=== PATIENT | female | born 1955 | race African-American/Black ===

== ENCOUNTER 2019-06-10 00:11 | Observation (INO) ==
[2019-06-10 00:50] LABS: Basophils # (auto) 0.04 K/uL (0-0.2); Basophils % (auto) 0.3 %; Eosinophils # (auto) 0.19 K/uL (0-0.5); Eosinophils % (auto) 1.5 %; Hematocrit (blood only) 36.3 % (37-47); Hemoglobin 12.8 g/dL (12.0-16.0); Immature Granulocytes # (auto) 0.03 K/uL (0.00-0.02); Immature Granulocytes % (auto) 0.2 %; Lymphocytes # (auto) 4.21 K/uL (1.2-3.4); Lymphocytes % (auto) 32.4 %; Mean Corpuscular Hemoglobin 35.4 pg (25-34); Mean Corpuscular Hgb Conc 35.3 g/dL (32-36); Mean Corpuscular Volume 100.3 fL (80-100); Mean Platelet Volume 9.7 fL (7.4-10.4); Monocytes # (auto) 1.03 K/uL (0.11-0.59); Monocytes % (auto) 7.9 %; Neutrophils % (auto) 57.7 %; Platelet Count 199 K/uL (130-400); RDW Coefficient of Variation 14.4 % (11.5-14.5); RDW Standard Deviation 52.7 fL (36.4-46.3); Red Blood Count 3.62 M/uL (4.2-5.4)
--- NOTE | 2019-06-10 00:59 | Emergency Department Note ---
History of Present Illness General Chief complaint: Tachycardia Stated complaint: FAST PULSE Time Seen by Provider: 06/10/19 00:28 History of Present Illness This is a 63-year-old female that presents to the emergency department via private vehicle with complaints of "fast pulse". The patient states that carlo cotaight around 10 PM she was laying in bed and felt a throbbing sensation in her head/jainism region and then checked her heart rate and it was quite high. Her pressure was not that high as she thought it could be from hypertension. Her heart rate was between 107 and 122. There was no chest pain or shortness of breath with this but she has been having some pain in the left anterior chest/region just inferior to the left breast. It is not with exertion. No known trauma or injury. She has a history of hypertension, hypercholesterolemia among others. No history of A. fib. No history of PE. No history of SC. Home Medications Home Medications Medication Instructions Recorded Confirmed Type multivitamin 1 tab PO DAILY 11/24/18 06/10/19 History chlorpheniramine maleate 4 mg 4 mg PO Q12H #120 tab 03/07/19 06/10/19 Rx tablet diclofenac sodium 50 mg 50 mg PO BID #60 tab 03/24/19 06/10/19 Rx tablet,delayed release famotidine 20 mg tablet 20 mg PO DAILY #90 tab 03/24/19 06/10/19 Rx amlodipine 5 mg tablet 5 mg PO DAILY #90 tab 04/24/19 06/10/19 Rx hydrochlorothiazide 25 mg tablet 25 mg PO DAILY #90 tab 04/24/19 06/10/19 Rx montelukast 10 mg tablet 10 mg PO QPM #90 tab 04/24/19 06/10/19 Rx acetaminophen 325 mg capsule 325 mg PO DAILY cap 04/27/19 06/10/19 History cetirizine 10 mg tablet 10 mg PO DAILY 04/27/19 06/10/19 History cholecalciferol (vitamin D3) 125 5,000 units PO WEEKLY cap 04/27/19 06/10/19 History mcg (5,000 unit) capsule darunavir 800 mg-cobicistat 150 mg 1 tab PO DAILY #30 tab 04/27/19 06/10/19 Rx tablet emtricitabine 200 mg-tenofovir 1 tab PO DAILY #30 tab 04/27/19 06/10/19 Rx alafenamide fumarate 25 mg tablet umeclidinium 62.5 mcg-vilanterol 1 puffs INH DAILY #60 ea 04/27/19 06/10/19 Rx 25 mcg/actuation powdr for inhalation azelastine 137 mcg (0.1 %) nasal 1 sprays INTNAS Q12H #30 ml 05/01/19 06/10/19 Rx spray aerosol omega-3 fatty acids 1,000 mg 1,000 mg PO DAILY #90 cap 05/01/19 06/10/19 Rx capsule compr.stocking,knee,long,large #12 ea 05/24/19 06/06/19 Rx albuterol sulfate 2 puff INHALATION QID PRN 06/10/19 06/10/19 History baclofen 10 mg PO DAILY 06/10/19 06/10/19 History Allergies Allergy/AdvReac Type Severity Reaction Status Date / Time enalapril AdvReac cough Verified 06/10/19 03:30 Past Med/Surg History Medical History Acid reflux disease (Chronic) Allergies (Chronic) COPD (chronic obstructive pulmonary disease) (Chronic) Hepatitis HIV (human immunodeficiency virus infection) (Chronic) HTN (hypertension) (Chronic) Hyperlipidemia (Chronic) Lumbar disc disease (Chronic) Vitamin D insufficiency Surgical History No pertinent past surgical history Family History Mother Heart disease Mother Hypertension Other Myocardial infarction Denies family history of Ovarian cancer Prostate cancer Breast cancer Lung cancer Colorectal cancer Stroke Social History Preferred Language: Wolof Communication Ability: Effective Visual Impairment: No Limitations Hearing Ability: Normal Duplicator Punch Operator Required: No Beliefs That Will Affect Care: None marital status: / Current Living Situation: Family Current Living Situation Comment: grandson current occupational status: retired Feels Safe at Home: Yes Smoking Status: Unknown if ever smoked Hx Alcohol Use: No Hx Substance Use: No Childhood Exposure to Second-Hand Smoke: Yes caffeine: No Dental Care, Regularly: Yes Physical Activity Frequency: Other Physical Activity Frequency Comment: limited Seatbelt Use: always Sunscreen Use: No Review of Systems A total of 10 systems reviewed and were otherwise negative Physical Exam Vital Signs Vital Signs - 24 hr 06/10/19 00:12 06/10/19 00:17 06/10/19 02:30 Temperature 36.8 C Temperature Source Oral Pulse Rate 116 H Pulse Rate [Apical] Respiratory Rate 18 18 Respiratory Effort / Characteristics Non-Labored Non-Labored Non-Labored Respiratory Depth Normal Normal Normal Respiratory Pattern Regular Regular Blood Pressure 138/77 Blood Pressure [Right Arm] 119/76 Blood Pressure Mean 97 Blood Pressure Mean [Right Arm] 90 Blood Pressure Position [Right Arm] Lying Pulse Oximetry 94 95 Oxygen Delivery Method Room Air Room Air Room Air Sepsis Recent Fever Within 48 Hours No Sepsis Action Taken by Nursing No Action Required 06/10/19 04:39 Temperature Temperature Source Pulse Rate Pulse Rate [Apical] 90 Respiratory Rate 18 Respiratory Effort / Characteristics Non-Labored Respiratory Depth Normal Respiratory Pattern Blood Pressure Blood Pressure [Right Arm] 111/68 Blood Pressure Mean Blood Pressure Mean [Right Arm] 82 Blood Pressure Position [Right Arm] Pulse Oximetry 97 Oxygen Delivery Method Room Air Sepsis Recent Fever Within 48 Hours Sepsis Action Taken by Nursing VITAL SIGNS - Vital signs and nursing notes were reviewed. Tachycardic and afebrile. GENERAL - 63-year-old female appearing her stated age who is in no acute distress. Communicates well with provider and answers questions appropriately. SKIN - Without rashes. HEAD - NC/AT. EYES - PERRL with EOMI bilaterally. Sclera anicteric. EARS - No deformities of external structures noted on gross examination bilaterally. Fluid behind TM bilaterally, nonerythematous. No perforation. NOSE - Midline and without cyanosis. No epistaxis or purulent drainage noted. MOUTH/OROPHARYNX - Without perioral cyanosis. Buccal mucosa pink and moist and without leukoplakia. NECK - Neck with FROM. No nuchal rigidity. LUNGS - Chest wall symmetric without accessory muscle use, intercostals retractions, or central cyanosis. Normal vesicular breath sounds CTA B/L. No wheezes, rales, or rhonchi appreciated. CARDIAC - RRR with S1/S2. No murmur, rubs, or gallops appreciated. EXTREMITIES - No clubbing or peripheral cyanosis. No pretibial edema present. +5/5 strength noted in UE/LE bilaterally. NEUROLOGIC - Cranial nerves II through XII grossly intact. Patellar reflexes +2/ 4. PSYCH - A&O, and cooperates fully with examiner. Pt is very pleasant and interacts well with examiner. Course Administered Medications Acetaminophen (Tylenol) 325 mg PO DAILY JONE Stop: 07/10/19 08:59 Last Admin: 06/10/19 08:51 Dose: 325 mg Documented by: [id number] Amlodipine Besylate (Norvasc) 5 mg PO DAILY JONE Stop: 07/10/19 08:59 Last Admin: 06/10/19 08:50 Dose: 5 mg Documented by: [id number] Baclofen (Lioresal) 10 mg PO DAILY JONE Stop: 07/10/19 08:59 Last Admin: 06/10/19 08:48 Dose: 10 mg Documented by: [id number] Cetirizine HCl (Zyrtec) 10 mg PO DAILY JONE Stop: 07/10/19 08:59 Last Admin: 06/10/19 08:51 Dose: 10 mg Documented by: [id number] Diclofenac Sodium (Voltaren) 50 mg PO BID JONE Stop: 07/10/19 08:59 Last Admin: 06/10/19 08:50 Dose: 50 mg Documented by: [id number] Famotidine (Pepcid) 20 mg PO DAILY JONE Stop: 07/10/19 08:59 Last Admin: 06/10/19 08:49 Dose: 20 mg Documented by: [id number] Fish Oil (Dewey-3 (Purified Fish Oil)) 1 gm PO DAILY JONE Stop: 07/10/19 08:59 Last Admin: 06/10/19 08:49 Dose: 1 gm Documented by: [id number] Potassium Chloride/Sodium Chloride (Normal Saline W/20 Meq Kcl) 20 meq in 1,000 mls @ 150 mls/hr IV .Q6H40M JONE Stop: 07/10/19 04:44 Last Admin: 06/10/19 05:31 Dose: 150 mls/hr Documented by: [id number] Miscellaneous (Order Awaiting Action) 1 ea N/A QS JONE Stop: 07/10/19 07:59 Last Admin: 06/10/19 08:53 Dose: Not Given Documented by: [id number] Miscellaneous (Order Awaiting Action) 1 ea N/A QS JONE Stop: 07/10/19 07:59 Last Admin: 06/10/19 08:53 Dose: Not Given Documented by: [id number] Miscellaneous (Order Awaiting Action) 1 ea N/A QS JONE Stop: 07/10/19 07:59 Last Admin: 06/10/19 08:52 Dose: Not Given Documented by: [id number] Miscellaneous (Order Awaiting Action) 1 ea N/A QS JONE Stop: 07/10/19 07:59 Last Admin: 06/10/19 08:53 Dose: Not Given Documented by: [id number] Multivitamins (Multivitamin Tab) 1 tab PO DAILY JONE Stop: 07/10/19 08:59 Last Admin: 06/10/19 08:51 Dose: 1 tab Documented by: [id number] Umeclidinium/Vilanterol (Anoro Ellipta 62.5/25 Mcg Inh) 1 puffs INH DAILY JONE Stop: 07/10/19 08:59 Last Admin: 06/10/19 08:52 Dose: 1 puffs Documented by: [id number] Discontinued Medications Potassium Chloride (K Mark / Wtr) 10 meq in 100 mls @ 100 mls/hr IV ONE ONE Stop: 06/10/19 02:39 Last Infusion: 06/10/19 03:09 Dose: 0 mls/hr Documented by: [id number] Admin: 06/10/19 01:50 Dose: 100 mls/hr Documented by: [id number] Potassium Chloride (K Mark / Wtr) 10 meq in 100 mls @ 100 mls/hr IV Q1H JONE Stop: 06/10/19 04:59 Last Infusion: 06/10/19 05:09 Dose: 0 mls/hr Documented by: [id number] Admin: 06/10/19 04:06 Dose: 100 mls/hr Documented by: [id number] Infusion: 06/10/19 04:05 Dose: 0 mls/hr Documented by: [id number] Admin: 06/10/19 03:09 Dose: 100 mls/hr Documented by: [id number] Potassium Chloride (Klor-Con M20) 40 meq PO NOW STA Stop: 06/10/19 05:05 Last Admin: 06/10/19 05:38 Dose: 40 meq Documented by: [id number] Potassium Chloride (Klor-Con M20) 40 meq PO NOW STA Stop: 06/10/19 07:56 Last Admin: 06/10/19 08:48 Dose: 40 meq Documented by: [id number] Medical Decision Making Laboratory Data Result diagrams: 06/10/19 00:35 06/10/19 00:35 Lab Results 06/10/19 06/10/19 06/10/19 Range/Units 00:35 00:35 00:35 WBC 13.00 H (4.8-10.8) K/uL RBC 3.62 L (4.2-5.4) M/uL Hgb 12.8 (12.0-16.0) g/dL Hct 36.3 L (37-47) % MCV 100.3 H (80-100) fL MCH 35.4 H (25-34) pg MCHC 35.3 (32-36) g/dL RDW Std Deviation 52.7 H (36.4-46.3) fL RDW Coeff of Tim 14.4 (11.5-14.5) % Plt Count 199 (130-400) K/uL MPV 9.7 (7.4-10.4) fL Immature Gran % (Auto) 0.2 % Neut % (Auto) 57.7 % Lymph % (Auto) 32.4 % Henderson % (Auto) 7.9 % Eos % (Auto) 1.5 % Baso % (Auto) 0.3 % Immature Gran # (Auto) 0.03 H (0.00-0.02) K/uL Neut # (Auto) 7.50 H (1.4-6.5) K/uL Lymph # (Auto) 4.21 H (1.2-3.4) K/uL Henderson # (Auto) 1.03 H (0.11-0.59) K/uL Eos # (Auto) 0.19 (0-0.5) K/uL Baso # (Auto) 0.04 (0-0.2) K/uL PT 10.6 (9.0-12.0) Seconds INR 1.0 (0.9-1.1) APTT 22.7 (21.0-31.0) Seconds PTT Ratio 0.8 D-Dimer 480 (0-500) ug/L FEU Sodium 140 (136-145) mmol/L Potassium 2.7 L (3.5-5.1) mmol/L Chloride 106 (98-107) mmol/L Carbon Dioxide 27 (21-32) mmol/L Anion Gap 7.0 (3-11) BUN 14 (7-18) mg/dl Creatinine 1.20 (0.6-1.2) mg/dl Est Cr Clr Drug Dosing 56.9 ml/min Est GFR ( Amer) 55.7 Est GFR (Non-Af Amer) 48.1 BUN/Creatinine Ratio 11.9 (10-20) Glucose 166 H (70-99) mg/dl Calcium 9.6 (8.5-10.1) mg/dl Magnesium 2.0 (1.8-2.4) mg/dl Total Bilirubin 0.5 (0.2-1) mg/dl AST 24 (15-37) U/L ALT 35 (12-78) U/L Alkaline Phosphatase 73 (45-117) U/L Troponin I < 0.015 (0-0.045) ng/ml Total Protein 7.9 (6.4-8.2) gm/dl Albumin 3.5 (3.4-5.0) gm/dl Globulin 4.4 H (2.5-4.0) gm/dl Albumin/Globulin Ratio 0.8 L (0.9-2) Lipase 174 (73-393) U/L TSH 0.888 (0.300-4.500) uIu/ml Urine Color Urine Appearance (Clear) Urine pH (4.5-7.5) Ur Specific [place] (1.000-1.030) Urine Protein (Negative) Urine Glucose (UA) (Negative) Urine Ketones (Negative) Urine Blood (Negative) Urine Nitrite (Negative) Urine Bilirubin (Negative) Urine Urobilinogen (Negative) Ur Leukocyte Esterase (Negative) 06/10/19 Range/Units 02:50 WBC (4.8-10.8) K/uL RBC (4.2-5.4) M/uL Hgb (12.0-16.0) g/dL Hct (37-47) % MCV (80-100) fL MCH (25-34) pg MCHC (32-36) g/dL RDW Std Deviation (36.4-46.3) fL RDW Coeff of Tim (11.5-14.5) % Plt Count (130-400) K/uL MPV (7.4-10.4) fL Immature Gran % (Auto) % Neut % (Auto) % Lymph % (Auto) % Henderson % (Auto) % Eos % (Auto) % Baso % (Auto) % Immature Gran # (Auto) (0.00-0.02) K/uL Neut # (Auto) (1.4-6.5) K/uL Lymph # (Auto) (1.2-3.4) K/uL Henderson # (Auto) (0.11-0.59) K/uL Eos # (Auto) (0-0.5) K/uL Baso # (Auto) (0-0.2) K/uL PT (9.0-12.0) Seconds INR (0.9-1.1) APTT (21.0-31.0) Seconds PTT Ratio D-Dimer (0-500) ug/L FEU Sodium (136-145) mmol/L Potassium (3.5-5.1) mmol/L Chloride (98-107) mmol/L Carbon Dioxide (21-32) mmol/L Anion Gap (3-11) BUN (7-18) mg/dl Creatinine (0.6-1.2) mg/dl Est Cr Clr Drug Dosing ml/min Est GFR ( Amer) Est GFR (Non-Af Amer) BUN/Creatinine Ratio (10-20) Glucose (70-99) mg/dl Calcium (8.5-10.1) mg/dl Magnesium (1.8-2.4) mg/dl Total Bilirubin (0.2-1) mg/dl AST (15-37) U/L ALT (12-78) U/L Alkaline Phosphatase (45-117) U/L Troponin I (0-0.045) ng/ml Total Protein (6.4-8.2) gm/dl Albumin (3.4-5.0) gm/dl Globulin (2.5-4.0) gm/dl Albumin/Globulin Ratio (0.9-2) Lipase (73-393) U/L TSH (0.300-4.500) uIu/ml Urine Color Yellow Urine Appearance Clear (Clear) Urine pH 7.0 (4.5-7.5) Ur Specific [place] 1.014 (1.000-1.030) Urine Protein Negative (Negative) Urine Glucose (UA) Negative (Negative) Urine Ketones Negative (Negative) Urine Blood Negative (Negative) Urine Nitrite Negative (Negative) Urine Bilirubin Negative (Negative) Urine Urobilinogen Negative (Negative) Ur Leukocyte Esterase Negative (Negative) Imaging Data My Impression: Negative chest x-ray. MDM Narrative Patient was seen and evaluated as above C6. Review was performed of nursing notes and vital signs. After obtaining a thorough history and physical examina tion the above work up was performed. She presents to us today with complaints of tachycardia. This is never been a trouble before. She is nontoxic on exam. Vital signs otherwise are stable. No recent illness. No chest pain currently but she notes that her last episode of pain underneath the left breast was yesterday. Patient does have a history of hypertension, hypercholesterolemia. Chest x-ray was obtained and results as above. Chest x-ray negative per my interpretation. An EKG was also obtained per my interpretation reveals sinus tachycardia rate of 109 bpm. QTc 659. Heart score 3-4. Mild leukocytosis at 13.0. Hemoglobin normal. D-dimer normal. Potassium 2.7. She was ordered 20 M EQ's of IV potassium IV. Urine is negative. Given the patient's age, presentation, risk factors, left anterior/inferior chest pain in the setting of tachycardia it is felt that further evaluation and management in the inpatient setting is warranted. Although certainly much of this could be caused by hypokalemia secondary to her underlying blood pressure medication given the risk factors it is felt that she be better served in the inpatient setting. Patient was in agreement. Please refer to further documentation regarding her stay. Case was discussed with the attending physician. GCS: 15 In the evaluation and treatment of this patient, the following differential diagnoses were considered: SC, ASC, Dysrhythmia, Angina, Mediastinitis, GERD, Esophagitis, PE, Pneumonia, Bronchitis, Costochondritis, Rib Fracture, Zoster. Impression & Plan Chest pain of uncertain etiology, Hypokalemia, Tachycardia Discharge Plan Visit Data *Final* Discharge Date/Time: 06/10/19 05:10 Chief Complaint: Tachycardia Stated Complaint: FAST PULSE ED Provider: Sera Hopkins ED Midlevel Provider: Awais Salazar Discharge Problem: Chest pain of uncertain etiology, Hypokalemia, Tachycardia Patient Disposition: Admitted As Inpatient Discharge Instructions Interventions: ED Discharge Assessment Last Done: 06/10/19 05:10
[2019-06-10 01:10] LABS: Alanine Aminotransferase 35 U/L (12-78); Albumin Level 3.5 gm/dl (3.4-5.0); Aspartate Aminotransferase 24 U/L (15-37); BUN Creatinine Ratio 11.9 (10-20); Blood Urea Nitrogen 14 mg/dl (7-18); Calcium 9.6 mg/dl (8.5-10.1); Carbon Dioxide 27 mmol/L (21-32); Chloride 106 mmol/L (98-107); Creatinine Clr Calc Pharmacy 56.9 ml/min; Est GFR (African American) 55.7; Est GFR (Non-African American) 48.1; Glucose 166 mg/dl (70-99); Lipase 174 U/L (73-393); Potassium 2.7 mmol/L (3.5-5.1); Sodium 140 mmol/L (136-145)
[2019-06-10 01:17] LABS: D Dimer 480 ug/L FEU (0-500); Partial Thromboplastin Ratio 0.8; Partial Thromboplastin Time 22.7 Seconds (21.0-31.0); Prothrombin Time 10.6 Seconds (9.0-12.0)
[2019-06-10 01:21] LABS: Albumin Globulin Ratio 0.8 (0.9-2); Alkaline Phosphatase 73 U/L (45-117); Bilirubin,Total 0.5 mg/dl (0.2-1); Globulin 4.4 gm/dl (2.5-4.0); Thyroid Stimulating Hormone 0.888 uIu/ml (0.300-4.500); Total Protein 7.9 gm/dl (6.4-8.2); Troponin I < 0.015 ng/ml (0-0.045)
[2019-06-10] MEDS ORDERED: POTASSIUM CHLORIDE / WTR 10 MEQ/100 ML PLCT IV ONE (01:40)
[2019-06-10 03:05] LABS: Appearance Urine Clear (Clear); Bilirubin Urine Negative (Negative); Blood Urine Negative (Negative); Color Urine Yellow; Glucose Urine UA Negative (Negative); Ketones Urine Negative (Negative); Leukocyte Esterase Urine Negative (Negative); Nitrite Urine Negative (Negative); Protein Urine Negative (Negative); Specific Gravity Urine 1.014 (1.000-1.030); Urobilinogen Urine Negative (Negative)
[2019-06-10] MEDS: POTASSIUM CHLORIDE / WTR 10 MEQ/100 ML PLCT IV SCH ×2 (03:09→04:06)
[2019-06-10] MEDS ORDERED: MAGNESIUM HYDROXIDE SUSP 30 ML UDC PO PRN (04:35)
[2019-06-10] MEDS ORDERED: NITROGLYCERIN SL 0.4 MG/TAB TAB SL PRN (04:35)
[2019-06-10] MEDS ORDERED: ACETAMINOPHEN 325 MG TAB PO PRN (04:35)
[2019-06-10] MEDS ORDERED: ONDANSETRON INJ 2 MG/ML 2 ML VIAL IV PRN (04:35)
[2019-06-10] MEDS ORDERED: ALUMINUM/MAGNESIUM SUSP 30 ML UDC PO PRN (04:35)
[2019-06-10] MEDS ORDERED: ALBUTEROL HFA 8 GM INHALER INH PRN (04:43)
[2019-06-10] MEDS ORDERED: NSS + 20MEQ KCL 20 MEQ/1,000 ML BAG IV SCH (04:45)
[2019-06-10] MEDS ORDERED: POTASSIUM CHLORIDE 20 MEQ TABCR PO STA ×2 (05:04→07:55)
--- NOTE | 2019-06-10 05:29 | History & Physical Report ---
Date of Service June 10, 2019 Assessment & Plan (1) Chest pain of uncertain etiology: Chest pain under her left breast- The patient will be admitted to telemetry for serial cardiac enzymes, serial EKG's, cardiac rhythm monitoring and a 2-D echocardiogram with Dopplers. The pain has been intermittent, sharp, and often times associated with the sensation of a rapid heartbeat. Sinus tachycardia noted on monitor, likely secondary to hypokalemia induced by HCTZ. If patient is to resume HCTZ after discharge, would suggest that she break the tablets in half, and be given a prescription for oral potassium supplementation. Present on Admission?: Yes (2) Hypokalemia due to excessive renal loss of potassium: Hold HCTZ. Replace potassium both orally and IV, and repeat BMP at 11:00 AM today Present on Admission?: Yes (3) HTN (hypertension): Continue amlodipine 5 mg p.o. daily. Hold HCTZ 12 5 mg p.o. daily, due to being the cause of low potassium of 2.7 Present on Admission?: Yes (4) HIV (human immunodeficiency virus infection): Continue usual medication emtricitabine 200mg-tenofovir fumarate 25mg tablet daily, and darunavir 800mg-cobicistat 150mg tablet daily. Present on Admission?: Yes (5) COPD (chronic obstructive pulmonary disease): Continue albuterol sulfate 2 puffs 4 times daily as needed, and Umeclidinium Vilanterol 1 puff inhaled daily. Continue montelukast Present on Admission?: Yes (6) Acid reflux disease: Continue famotidine Present on Admission?: Yes (7) Hyperlipidemia: On no direct treatment at this time Present on Admission?: Yes (8) Allergies: Continue cetirizine 10 mg p.o. daily, chlorpheniramine as needed, and azelastine nasal spray every 12 hours Present on Admission?: Yes (9) Lumbar disc disease: Continue baclofen, diclofenac sodium and acetaminophen as needed. Present on Admission?: Yes History of Present Illness Chief Complaint: The patient presents to the emergency department with worsening increased heart rate, tingling in her fingers and toes, fatigue and intermittent pain under her left breast. Primary Care Provider: Gaetano Blackburn MD The patient is a 63-year-old female with a past medical history including spinal stenosis, spondylolisthesis at L5-S1 level, lower leg edema, vitamin D deficiency, hypertension, HIV infection, lumbar disc disease, COPD, GERD, allergies and hyperlipidemia. She presents to the emergency department with the above symptoms, which began a few days ago, but intensified prior to arrival to the ED. Allergies Allergy/AdvReac Type Severity Reaction Status Date / Time enalapril AdvReac cough Verified 06/10/19 03:30 Home Medications Home Medications Medication Instructions Recorded Confirmed Type multivitamin 1 tab PO DAILY 11/24/18 06/10/19 History chlorpheniramine maleate 4 mg 4 mg PO Q12H #120 tab 03/07/19 06/10/19 Rx tablet diclofenac sodium 50 mg 50 mg PO BID #60 tab 03/24/19 06/10/19 Rx tablet,delayed release famotidine 20 mg tablet 20 mg PO DAILY #90 tab 03/24/19 06/10/19 Rx amlodipine 5 mg tablet 5 mg PO DAILY #90 tab 04/24/19 06/10/19 Rx hydrochlorothiazide 25 mg tablet 25 mg PO DAILY #90 tab 04/24/19 06/10/19 Rx montelukast 10 mg tablet 10 mg PO QPM #90 tab 04/24/19 06/10/19 Rx acetaminophen 325 mg capsule 325 mg PO DAILY cap 04/27/19 06/10/19 History cetirizine 10 mg tablet 10 mg PO DAILY 04/27/19 06/10/19 History cholecalciferol (vitamin D3) 125 5,000 units PO WEEKLY cap 04/27/19 06/10/19 History mcg (5,000 unit) capsule darunavir 800 mg-cobicistat 150 mg 1 tab PO DAILY #30 tab 04/27/19 06/10/19 Rx tablet emtricitabine 200 mg-tenofovir 1 tab PO DAILY #30 tab 04/27/19 06/10/19 Rx alafenamide fumarate 25 mg tablet umeclidinium 62.5 mcg-vilanterol 1 puffs INH DAILY #60 ea 04/27/19 06/10/19 Rx 25 mcg/actuation powdr for inhalation azelastine 137 mcg (0.1 %) nasal 1 sprays INTNAS Q12H #30 ml 05/01/19 06/10/19 Rx spray aerosol omega-3 fatty acids 1,000 mg 1,000 mg PO DAILY #90 cap 05/01/19 06/10/19 Rx capsule compr.stocking,knee,long,large #12 ea 05/24/19 06/06/19 Rx albuterol sulfate 2 puff INHALATION QID PRN 06/10/19 06/10/19 History baclofen 10 mg PO DAILY 06/10/19 06/10/19 History Past Med/Surg History Social History Preferred Language: Croatian Communication Ability: Effective Visual Impairment: No Limitations Hearing Ability: Normal Beliefs That Will Affect Care: None marital status: / Current Living Situation: Family Current Living Situation Comment: grandson current occupational status: retired Feels Safe at Home: Yes Smoking Status: Never smoker Tobacco Type: cigarettes ; Age Started Using Tobacco: 14 ; Age Quit Using Tobacco: 62 ; packs per day: 1 ; Second Hand Exposure: Yes ; Hx Alcohol Use: No Hx Substance Use: No Childhood Exposure to Second-Hand Smoke: Yes caffeine: No Dental Care, Regularly: Yes Physical Activity Frequency: Other Physical Activity Frequency Comment: limited Seatbelt Use: always Sunscreen Use: No Review of Systems Review of Systems: The patient denies accompanying shortness of breath, dyspnea on exertion, cough, change in lower extremity swelling, sore throat, fevers, chills, sweats, nausea, vomiting, diarrhea , constipation, abdominal pain, pelvic pain, blood in urine or stool, dysuria, urinary frequency or urgency, lightheadedness, dizziness, headache, memory loss, loss of consciousness, rash, abnormal bruising or bleeding, imbalance, focal or generalized weakness, generalized arthralgias or myalgias, neck pain, or night sweats. The review of systems is otherwise negative other than for that already noted above, and at least 10 systems have been reviewed. Physical Exam Physical Exam: The patient is awake, alert and oriented 3, well developed and well nourished, normocephalic and atraumatic, sitting upright in bed and in no acute distress. HEENT--PERRL, EOMI, mucous membranes and oropharynx normal. Neck--supple. No JVD. No bruits. Thyroid normal, trachea midline, no adenopathy. Heart--normal S1 and S2. No murmurs, rubs or gallops. Lungs--clear bilaterally, no respiratory distress, no accessory muscle use. Abdomen--normal bowel sounds and soft. Nontender. Nondistended. Extremities--no cyanosis or clubbing. There is trace bilateral pretibial pitting edema. Dermatologic--normal skin turgor, normal color, no abnormal lymph nodes, no rash. Neurologic--cranial nerves II through XII grossly intact. Rheumatologic--normal range of motion. Psychiatric--normal affect. Results & Data Vital Signs (Past 12 Hours) Vital Signs Temp Pulse Pulse Resp BP BP Pulse Ox 06/10/19 04:39 90 18 111/68 97 06/10/19 02:30 18 119/76 95 06/10/19 00:17 98.2 F 116 H 18 138/77 94 Laboratory Results Laboratory Results WBC 13.00 K/uL (4.8-10.8) H 06/10/19 00:35 RBC 3.62 M/uL (4.2-5.4) L 06/10/19 00:35 Hgb 12.8 g/dL (12.0-16.0) 06/10/19 00:35 Hct 36.3 % (37-47) L 06/10/19 00:35 MCV 100.3 fL (80-100) H 06/10/19 00:35 MCH 35.4 pg (25-34) H 06/10/19 00:35 MCHC 35.3 g/dL (32-36) 06/10/19 00:35 RDW Std Deviation 52.7 fL (36.4-46.3) H 06/10/19 00:35 RDW Coeff of Tim 14.4 % (11.5-14.5) 06/10/19 00:35 Plt Count 199 K/uL (130-400) 06/10/19 00:35 MPV 9.7 fL (7.4-10.4) 06/10/19 00:35 Immature Gran % (Auto) 0.2 % 06/10/19 00:35 Neut % (Auto) 57.7 % 06/10/19 00:35 Lymph % (Auto) 32.4 % 06/10/19 00:35 [place] % (Auto) 7.9 % 06/10/19 00:35 Eos % (Auto) 1.5 % 06/10/19 00:35 Baso % (Auto) 0.3 % 06/10/19 00:35 Immature Gran # (Auto) 0.03 K/uL (0.00-0.02) H 06/10/19 00:35 Neut # (Auto) 7.50 K/uL (1.4-6.5) H 06/10/19 00:35 Lymph # (Auto) 4.21 K/uL (1.2-3.4) H 06/10/19 00:35 [place] # (Auto) 1.03 K/uL (0.11-0.59) H 06/10/19 00:35 Eos # (Auto) 0.19 K/uL (0-0.5) 06/10/19 00:35 Baso # (Auto) 0.04 K/uL (0-0.2) 06/10/19 00:35 PT 10.6 Seconds (9.0-12.0) 06/10/19 00:35 INR 1.0 (0.9-1.1) 06/10/19 00:35 APTT 22.7 Seconds (21.0-31.0) 06/10/19 00:35 PTT Ratio 0.8 06/10/19 00:35 D-Dimer 480 ug/L FEU (0-500) 06/10/19 00:35 Sodium 140 mmol/L (136-145) 06/10/19 00:35 Potassium 2.7 mmol/L (3.5-5.1) L 06/10/19 00:35 Chloride 106 mmol/L (98-107) 06/10/19 00:35 Carbon Dioxide 27 mmol/L (21-32) 06/10/19 00:35 Anion Gap 7.0 (3-11) 06/10/19 00:35 BUN 14 mg/dl (7-18) 06/10/19 00:35 Creatinine 1.20 mg/dl (0.6-1.2) 06/10/19 00:35 Est Cr Clr Drug Dosing 56.9 ml/min 06/10/19 00:35 Est GFR ( Amer) 55.7 06/10/19 00:35 Est GFR (Non-Af Amer) 48.1 06/10/19 00:35 BUN/Creatinine Ratio 11.9 (10-20) 06/10/19 00:35 Glucose 166 mg/dl (70-99) H 06/10/19 00:35 Calcium 9.6 mg/dl (8.5-10.1) 06/10/19 00:35 Magnesium 2.0 mg/dl (1.8-2.4) 06/10/19 00:35 Total Bilirubin 0.5 mg/dl (0.2-1) 06/10/19 00:35 AST 24 U/L (15-37) 06/10/19 00:35 ALT 35 U/L (12-78) 06/10/19 00:35 Alkaline Phosphatase 73 U/L (45-117) 06/10/19 00:35 Troponin I < 0.015 ng/ml (0-0.045) 06/10/19 00:35 Total Protein 7.9 gm/dl (6.4-8.2) 06/10/19 00:35 Albumin 3.5 gm/dl (3.4-5.0) 06/10/19 00:35 Globulin 4.4 gm/dl (2.5-4.0) H 06/10/19 00:35 Albumin/Globulin Ratio 0.8 (0.9-2) L 06/10/19 00:35 Lipase 174 U/L (73-393) 06/10/19 00:35 TSH 0.888 uIu/ml (0.300-4.500) 06/10/19 00:35 Urine Color Yellow 06/10/19 02:50 Urine Appearance Clear (Clear) 06/10/19 02:50 Urine pH 7.0 (4.5-7.5) 06/10/19 02:50 Ur Specific [place] 1.014 (1.000-1.030) 06/10/19 02:50 Urine Protein Negative (Negative) 06/10/19 02:50 Urine Glucose (UA) Negative (Negative) 06/10/19 02:50 Urine Ketones Negative (Negative) 06/10/19 02:50 Urine Blood Negative (Negative) 06/10/19 02:50 Urine Nitrite Negative (Negative) 06/10/19 02:50 Urine Bilirubin Negative (Negative) 06/10/19 02:50 Urine Urobilinogen Negative (Negative) 06/10/19 02:50 Ur Leukocyte Esterase Negative (Negative) 06/10/19 02:50 Code Status & VTE Plan Code Status Full code VTE Prophylaxis Plan VTE Prophylaxis will be ordered: Yes PG Care Time/CCT Total # of Minutes Spent Total Time Spent with Patient: Total time spent is greater than 50% in coordination of care (as documented) at patient's floor/unit and/or counseling patient: Coding Level of Care Code 09821 OBS Care - Level 3 Diagnoses Chest pain of uncertain etiology R07.89 Hypokalemia due to excessive renal loss of potassium E87.6 HTN (hypertension) I10 HIV (human immunodeficiency virus infection) B20 COPD (chronic obstructive pulmonary disease) J44.9 Acid reflux disease K21.9 Hyperlipidemia E78.5 Allergies T78.40XA Lumbar disc disease M51.9
--- NOTE | 2019-06-10 07:40 | XRay Report ---
XR chest 1V portable HISTORY: tachycardia COMPARISON: Chest 04/27/2019. FINDINGS: The lungs are clear. Cardiac silhouette is normal in size. No pleural effusions. No pneumot horax. IMPRESSION: No acute process. ACT 112: Negative or not required by law. Electronically signed by: Michael Palmer M.D. 06/10/2019 7:39 AM
[2019-06-10] MEDS ORDERED: AZELASTINE~ORDER AWAITING ACTION SCH (08:00)
[2019-06-10] MEDS ORDERED: OMEGA-3 (PURIFIED FISH OIL) 1 GM CAP PO SCH (09:00)
[2019-06-10] MEDS ORDERED: MULTIVITAMIN TAB PO SCH (09:00)
[2019-06-10] MEDS ORDERED: FAMOTIDINE 20 MG TAB PO SCH (09:00)
[2019-06-10] MEDS ORDERED: BACLOFEN 10 MG TAB PO SCH (09:00)
[2019-06-10] MEDS ORDERED: DICLOFENAC SODIUM 25 MG TABDR PO SCH (09:00)
[2019-06-10] MEDS ORDERED: hydroCHLOROthiazide 25 MG TAB PO SCH (09:00)
[2019-06-10] MEDS ORDERED: CETIRIZINE HCL 10 MG TABLET PO SCH (09:00)
[2019-06-10] MEDS ORDERED: UMECLIDINIUM/VILANTEROL 62.5/25MCG 7 PUFFS/INHALER INH SCH (09:00)
[2019-06-10] MEDS ORDERED: ACETAMINOPHEN 325 MG TAB PO SCH (09:00)
[2019-06-10] MEDS ORDERED: AMLODIPINE BESYLATE 5 MG TAB PO SCH (09:00)
[2019-06-10 11:34] LABS: BUN Creatinine Ratio 11.8 (10-20); Blood Urea Nitrogen 11 mg/dl (7-18); Calcium 8.7 mg/dl (8.5-10.1); Carbon Dioxide 27 mmol/L (21-32); Chloride 110 mmol/L (98-107); Creatinine Clr Calc Pharmacy 73.3 ml/min; Est GFR (African American) 75.8; Est GFR (Non-African American) 65.4; Glucose 108 mg/dl (70-99); Potassium 3.1 mmol/L (3.5-5.1); Sodium 142 mmol/L (136-145)
[2019-06-10 11:38] LABS: Troponin I < 0.015 ng/ml (0-0.045)
[2019-06-10] MEDS ORDERED: POTASSIUM CHLORIDE 20 MEQ TABCR PO ONE (12:45)
--- NOTE | 2019-06-10 12:58 | Discharge Summary ---
Date of Service June 10, 2019 Admission HPI Per Admitting Provider The patient is a 63-year-old female with a past medical history including spinal stenosis, spondylolisthesis at L5-S1 level, lower leg edema, vitamin D deficiency, hypertension, HIV infection, lumbar disc disease, COPD, GERD, allergies and hyperlipidemia. She presents to the emergency department with the above symptoms, which began a few days ago, but intensified prior to arrival to the ED. Admission Exam Per Admitting Provider The patient is awake, alert and oriented 3, well developed and well nourished, normocephalic and atraumatic, sitting upright in bed and in no acute distress. HEENT--PERRL, EOMI, mucous membranes and oropharynx normal. Neck--supple. No JVD. No bruits. Thyroid normal, trachea midline, no adenopathy. Heart--normal S1 and S2. No murmurs, rubs or gallops. Lungs--clear bilaterally, no respiratory distress, no accessory muscle use. Abdomen--normal bowel sounds and soft. Nontender. Nondistended. Extremities--no cyanosis or clubbing. There is trace bilateral pretibial pitting edema. Dermatologic--normal skin turgor, normal color, no abnormal lymph nodes, no rash. Neurologic--cranial nerves II through XII grossly intact. Rheumatologic--normal range of motion. Psychiatric--normal affect. Principal Diagnosis hypokalemia Discharge Exam General: In NAD Neuro: A&O x 4 CV: RRR, no m/r/g Pulm: CTAB, equal breath sounds bilaterally , no increased work of breathing Abdomen: +BS, mild TTP in all quadrants, non-distended LE: No LE edema, no calf tenderness Discharge Data Allergies Allergy/AdvReac Type Severity Reaction Status Date / Time enalapril AdvReac cough Verified 06/10/19 03:30 Consultations 06/10/19 03:26 ED Decision to Admit Stat 06/10/19 04:40 Consult Case Management - Discharge Planning Routine Hospital Course (1) Hypokalemia due to excessive renal loss of potassium: 63-year-old female with past medical history of HTN, HLD, COPD, GERD, HIV, LE edema (secondary to amlodipine vs. venous insufficiency), spinal stenosis, spondylolisthesis at L5-S1 level, vitamin D deficiency, lumbar disc disease and allergies. Presented with intermittent sharp chest pain, palpitatons and tingling in her fingers and toes. Found to have significant hypokalemia. Symptoms resolved s/p repletion. Hypokalemia: in the setting of being on hydrochlorothiazide -Received IV and PO potassium chloride -Discharged on Potassium Chloride 20meq daily -Follow up with PCP in 1 week to recheck K HTN/HLD -Continue home amlodipine and hydrochlorothiazide -Started on Potassium Chloride 20meq daily COPD -Continue home albuterol prn, Anoro Ellipta inhaler, montelukast Allergies -Continue home cetirizine, chlorpheineramine prn and azelastine Lumbar disc disease/spinal stenosis/spondylolisthesis at L5-S1 level -Continue home baclofen, tylenol prn -Started on diclofenac gel 1% QID -Recommended follow up with Dr. Salas Devine for OMT (2) Spinal stenosis: (3) Spondylolisthesis at L5-S1 level: (4) Vitamin D insufficiency: (5) HTN (hypertension): (6) HIV (human immunodeficiency virus infection): (7) COPD (chronic obstructive pulmonary disease): (8) Acid reflux disease: (9) Hyperlipidemia: Total Time Total Time Spent Total Time Spent (In Minutes): <30 Discharge Plan Discharge Items Patient Disposition: Home - Self-Care Reason For Visit: HYPOKALEMIA, DIURETIC INDUCED; CHEST PAIN, Discharge Diagnosis: Hypokalemia Activity: Resume your previous activity Non-emergency contact: Primary Care Provider Call non-emergency contact if: you have any medication questions and your symptoms worsen Follow-up/Referrals: Gaetano Cristina MD [Primary Care Provider] - Diet: Heart Healthy Add Attending Provider Instructions: Ms. Grimes you were admitted for chest discomfort and numbness/tingling. Your potassium level was low and your symptoms improved after you received supplementation. Your heart work up was reassuring. Your potassium level went down because one of your blood pressure medication (hydrochlorothiazide) can cause that as a common side effect but it is a great blood pressure medication and helping you. To offset that effect you will need to take a potassium supplement pill daily. We also prescribed you a topical gel to help with your back pain, its like ibuprofen/advil but acts locally and has less systemic absorption and does not hurt your stomach/kidneys as much. We also recommended you see Dr. Salas Devine who is an osteopathic doctor for osteopathic manipulations which could help your back pain as well. Please follow the instructions below. -Take potassium Chloride 20meq (1 pill) daily - prescription sent to [facility] -Follow up with your doctor next week (mid-late next week) to check your p otassium level again -Apply Diclofenac 1% gel (voltaren) three-four times on your back (pain medication) - prescription sent to [facility] anna ferrara -Schedule an appointment with Dr. Salas Devine by calling [email or web address] [address] Pending Studies at Discharge: No Stand-Alone Forms: My [facility] [place] [employer], Smoking Cessation Medications and DC Order Prescriptions: New potassium chloride 20 mEq tablet extended release 20 meq PO DAILY Qty: 30 RF: 0 diclofenac sodium 1 % gel 4 gm TOP QID Qty: 100 RF: 1 Continued chlorpheniramine maleate [Allergy (chlorpheniramine)] 4 mg tablet 4 mg PO Q12H Qty: 120 RF: 0 diclofenac sodium 50 mg tablet,delayed release (DR/EC) 50 mg PO BID Qty: 60 RF: 0 famotidine 20 mg tablet 20 mg PO DAILY Qty: 90 RF: 3 montelukast 10 mg tablet 10 mg PO QPM Qty: 90 RF: 1 hydrochlorothiazide 25 mg tablet 25 mg PO DAILY Qty: 90 RF: 1 amlodipine 5 mg tablet 5 mg PO DAILY Qty: 90 RF: 1 azelastine 137 mcg (0.1 %) aerosol,spray 1 sprays INTNAS Q12H Qty: 30 RF: 2 multivitamin [Daily Multi-Vitamin] tablet 1 tab PO DAILY RF: 0 cetirizine 10 mg tablet 10 mg PO DAILY RF: 0 cholecalciferol (vitamin D3) 125 mcg (5,000 unit) capsule 5,000 units PO WEEKLY RF: 0 acetaminophen 325 mg capsule 325 mg PO DAILY RF: 0 Anoro Ellipta 62.5-25 mcg/actuation blister with device 1 puffs INH DAILY Qty: 60 RF: 3 Prezcobix 800-150 mg-mg tablet 1 tab PO DAILY Qty: 30 RF: 6 Descovy 200-25 mg tablet 1 tab PO DAILY Qty: 30 RF: 6 omega-3 fatty acids [Fish Oil Concentrate] 1,000 mg capsule 1,000 mg PO DAILY Qty: 90 RF: 3 (DME) compr.stocking,knee,long,large Misc See Rx Instructions .ROUTE .MEDSUPPLY Qty: 12 RF: 0 baclofen 10 mg tablet 10 mg PO DAILY RF: 0 albuterol sulfate 90 mcg/actuation HFA aerosol inhaler 2 puff INHALATION QID PRN (Reason: Shortness Of Breath Or Wheezing) RF: 0 Discharge Orders: Discharge Order (Routine); Ordered 06/10/19 Ordered By: Nino Melchor Admission Data Admit Date/Time: 06/10/19 04:51 Attending Provider: Kayode Hart Admit Provider: Benson Gotti Primary Care Provider: Gaetano Cristina V. Other Providers: Benson Gotti Other Interventions: Discharge Summary Assessment (RN) Last Done: 06/10/19 13:03 DC Date/Time DO NOT enter until pt leaves facility: 06/10/19 14:02 Supervising Physician Co-Signing Physician Notes I personally examined the patient and verified all vazquez points of history and exam, discussed case, and agree with decision making with Dr Melchor. Feeling much better after getting potassium supplementation. Also discussed chronic low back painmostly in her back with some radiation to her buttock and thigh but not the way down her leg. Vitals noted, in general she is awake and alert pleasant no distress. HEENT normocephalic atraumatic mucous membranes moist. Breathing unlabored no accessory muscle use good effort. Skin shows no rashes no pallor or icterus. Labs noted outpatient records reviewed Paresthesias tingling and nonspecific painfortunately cardiac enzymes are negative and symptoms resolved with potassium replacement. It appears that her potassium was actually low enough to be interfering with muscle repolarizationand her symptoms entirely improved with potassium supplementation. She is on a diuretic for her blood pressure, which seems to be a quite reasonable course of action at this point time with her hypertension, but she appears to need ongoing potassium supplementation. 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 Stable for home. Chronic back painsounds likely to be biomechanical, will ask her to see Dr. Devine for a trial of OMT. Stable for home. Resident Activity Tracking Resident Involvement: Resident Care Provided Care Provided: Adult Hospital Medicine
--- NOTE | 2019-06-10 15:17 | Billing Data ---
Date of Service June 10, 2019 Coding Level of Care Code D/C Day Management <30 mins
--- NOTE | 2019-06-10 15:18 | Billing Data ---
Date of Service June 10, 2019 Coding Level of Care Code 66149 OBS Care - Discharge
--- NOTE | 2019-06-10 18:10 | Electrocardiogram Report ---
Test Reason : Blood Pressure : / mmHG Vent. Rate : 109 BPM Atrial Rate : 057 BPM P-R Int : 000 ms QRS Dur : 092 ms QT Int : 490 ms P-R-T Axes : 000 -09 052 degrees QTc Int : 659 ms Poor data quality, interpretation may be adversely affected Sinus tachycardia Inferior infarct , age undetermined Prolonged QT Abnormal ECG No previous ECGs available Confirmed by Hernan Logan ([id number]) on 06/10/2019 6:10:05 PM Referred By: REFERRED SELF Confirmed By:Giovanni Logan
--- NOTE | 2019-06-10 18:15 | Electrocardiogram Report ---
Test Reason : Blood Pressure : / mmHG Vent. Rate : 088 BPM Atrial Rate : 088 BPM P-R Int : 194 ms QRS Dur : 072 ms QT Int : 444 ms P-R-T Axes : 014 003 033 degrees QTc Int : 537 ms Sinus rhythm Poor data quality, interpretation may be adversely affected Possible Left atrial enlargement Low voltage QRS Inferior infarct (cited on or before 10-JUN-2019) Abnormal ECG When compared with ECG of 10-JUN-2019 08:11, (unconfirmed) Fusion complexes are now Present Confirmed by Hernan Logan ([id number] on 06/10/2019 6:14:59 PM Referred By: REFERRED SELF Confirmed By:Giovanni Logan
[2019-06-10] MEDS ORDERED: MONTELUKAST SODIUM 10 MG TABLET PO SCH (21:00)
[2019-06-12] MEDS ORDERED: CHOLECALCIFEROL 1,000 UNITS 25 MCG TAB PO SCH (09:00)
== END 2019-06-10 14:02 | disposition home or self-care (01) ==
LOC: ED 00:11 → 2E 00:11 → SUATTDRO 04:51 → 2E 05:10